=== PATIENT | male | born 1930 ===

== ENCOUNTER → 2018-10-26 | Outpatient (CLI) | payer OTHER | LOC: BHFA 08:30 | PROVIDERS: ATTEND Internal Medicine Cardiovascular Disease | DX: R01.1 Cardiac murmur, unspecified (principal) ==

== ENCOUNTER → 2018-11-10 | Outpatient (CLI) | payer OTHER | LOC: BHLMT 14:30 | PROVIDERS: ATTEND Internal Medicine Cardiovascular Disease | DX: I42.9 Cardiomyopathy, unspecified (principal); I10 Essential (primary) hypertension; I95.9 Hypotension, unspecified; F33.1 Major depressive disorder, recurrent, moderate; G20 Parkinson's disease | CPT/HCPCS: 93005-PO ==